=== PATIENT | female | born 1940 | race African-American/Black ===

== ENCOUNTER → 2017-10-08 | Outpatient (CLI) | payer OTHER ==
[~2017-10-08] MED LIST: LOVENOX40 MG/0.4; TRAMADOL HCL-AP1 TAB
== END | disposition home or self-care (01) ==
LOC: TOM 12:46
DX: I61.1 Nontraumatic intracerebral hemorrhage in hemisphere, cortical (principal)

== ENCOUNTER 2018-01-26 08:30 | Outpatient (CLI) | payer OTHER | END 2018-01-26 09:02 | disposition home or self-care (01) | LOC: SONOGRAMA 08:30 → MAMO-SONO 10:15 | DX: M25.561 Pain in right knee (principal); M25.511 Pain in right shoulder; H47.321 Drusen of optic disc, right eye ==

== ENCOUNTER 2022-05-10 13:04 | Outpatient (CLI) | payer OTHER | END 2022-05-10 14:49 | disposition home or self-care (01) | LOC: LAB 13:04 | PROVIDERS: ATTEND Radiology Diagnostic Radiology | DX: H05.249 Constant exophthalmos, unspecified eye (principal) ==

== ENCOUNTER 2022-05-15 07:43 | Outpatient (CLI) | payer OTHER | END 2022-05-15 07:47 | disposition home or self-care (01) | LOC: TOM 07:43 | DX: H05.20 Unspecified exophthalmos (principal) ==